=== PATIENT | male | born 1950 | race African-American/Black ===

== ENCOUNTER 2021-05-08 11:04 | Outpatient (CLI) | payer OTHER, SELFPAY ==
--- NOTE | ~2021-05-08 | XR_ITS ---
EXAMINATION: HAND-KIANA ARTHRITIS 3+VIEWS DATE: 05/08/2021 12:01 INDICATION: Unspecified osteoarthritis at the bilateral hands and wrists. TECHNIQUE: Posteroanterior, lateral, and oblique views of the left and of the right hands as well as a ballcatchers view of both hands were obtained. COMPARISON: None. FINDINGS: Alignment is normal at the bilateral hands and wrists. No fractures. The articular osteoarthritis inv olving the majority of the joints at the bilateral hands and wrists characterized by mild nonuniform joint space narrowing and/or small marginal osteophytes. This is of mild to moderate severity at the bilateral first metacarpophalangeal and bilateral first interphalangeal joints and at the right secon d and third distal interphalangeal joints and otherwise mild. No erosions to suggest an inflammatory arthritis. Soft tissues are unremarkable. IMPRESSION: 1. 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 Reviewed, dictated and finalized at location A.
--- NOTE | ~2021-05-08 | XR_ITS ---
EXAMINATION: XR sacroiliac joints min 3V, XR lumbar spine min 4V DATE: 05/08/2021 12:01 INDICATION: Rheumatoid arthritis with rheumatoid factor of multiple sites TECHNIQUE: 1. AP, lateral, left and right oblique and coned-down lateral lumbosacral views of the lumbar spine w ere obtained. 2. AP and left and right oblique views of the sacroiliac joints were obtained. COMPARISON: None. FINDINGS: Lumbar spine: Alignment is normal. Vertebral body heights are normal. Mild disc height loss at L2-L3 and L5-S1 and mild to moderate disc height loss at L3-L4 and L4-L5. There are prominent bridging osteophytes at L1- L2 through L5-S1 consistent with diffuse idiopathic skeletal hyperostosis (DISH). Multilevel mild steffany ateral lumbar facet osteoarthritis. No pars interarticularis defects. Sacroiliac joints: Mild nonuniform joint space narrowing consistent with mild osteoarthritis at the bilateral sacroiliac joints. Increased density at the cephalad aspect of both sacroiliac joints suggesting additional geni dging osteophytes likely related to DISH. No erosions to suggest inflammatory sacroiliitis. Mild bila teral hip osteoarthritis. No fractures or suspected avascular necrosis. IMPRESSION: 1. Mild to moderate lumbar spondylosis. 2. Mild bilateral sacroiliac osteoarthritis without erosions to suggest inflammatory sacroiliitis. 3. Multiple bridging osteophytes and lumbar spine along with likely bridging osteophytes at the poste rior aspect of the bilateral sacral iliac joints consistent with diffuse idiopathic skeletal hyperost osis (DISH). Iliac joints Reviewed, dictated and finalized at location A. IMPRESSION: 1. Mild to moderate lumbar spondylosis. 2. Mild bilateral sacroiliac osteoarthritis without erosions to suggest inflamm atory sacroiliitis. 3. Multiple bridging osteophytes and lumbar spine along with likely bridging os teophytes at the posterior aspect of the bilateral sacral iliac joints consiste nt with diffuse idiopathic skeletal hyperostosis (DISH). Iliac joints
== END 2021-05-08 11:05 | disposition home or self-care (01) ==
LOC: ANHIMG 11:10
PROVIDERS: PCP Internal Medicine; Visit Provider Internal Medicine
DX: M05.79 Rheumatoid arthritis with rheumatoid factor of multiple sites without organ or systems involvement (principal); M47.816 Spondylosis without myelopathy or radiculopathy, lumbar region; M89.49 Other hypertrophic osteoarthropathy, multiple sites; M48.1 Ankylosing hyperostosis [Forestier]
CPT/HCPCS: 72110; 72202; 73130